=== PATIENT | female | born 1930 | race Caucasian/White ===

== ENCOUNTER → 2018-04-04 | Outpatient (CLI) | payer MEDICARE ==
--- NOTE | 2018-04-04 15:12 | RAD ---
CLINICAL INDICATION: RT BREAST MASS PRE-PROCEDURAL CONSULTATION: Details of the procedure and possible limitations and complications were discussed with the patient. Particularly the risk of implant rupture was discussed. After addressing her questions and concerns, written informed consent was obtained. A time out was then taken to verify patient's name and date of as well as site and laterality. PROCEDURE: The mass within the superior right breast was targeted under ultrasound. The skin of the right breast was cleansed and prepped in the typical sterile fashion. 7 cc of 1% lidocaine was used for local anesthesia. A small skin incision was then made to permit passage of a 16 gauge spring activated biopsy device. 3 core specimens were obtained. A S shaped clip was then deployed at the biopsy site. Hemostasis was achieved. The patient tolerated the procedure well with no immediate complications. Post-procedural digital mammographic imaging of the right breast demonstrate the S shaped clip in appropriate position. IMPRESSION: Successful ultrasound guided core needle biopsy of a superior right breast mass Pathology is pending. [facility]
--- NOTE | 2018-04-06 15:08 | PATHOLOGY ---
[facility] Accession Number: [id number] . 01 Material submitted: . RIGHT BREAST MASS BIOPSY . Clinical history: . Right breast mass . 02 Diagnosis: Breast tissue, right breast mass, needle biopsy: - INVASIVE DUCTAL CARCINOMA, HISTOLOGIC GRADE 2. SEE COMMENT. . (JPM/at/mml;04/05/2018) QTA/04/06/2018 . 02 Comment: Sections of the right breast mass needle biopsy reveal an invasive mammary carcinoma. A portion of the tumor is comprised of solid nests of tumor cells with only focal tubule formation. Another portion of the tumor is comprised of tumor cells having an organoid arrangement with peripheral nuclear palisading. The tumor shows moderate nuclear pleomorphism and mitotic activity. The invasive carcinoma measures up to 1.1 cm in greatest dimension on the glass slide. There are no tumor associated calcifications. There is no lymphovascular tumor invasion. A limited panel of immunoperoxidase stains is obtained on block A1 and reveals the following results: . Special stains performed: E-cadherin: Tumor cells positive Synaptophysin: Tumor cells negative Chromogranin: Tumor cells negative CD56: Tumor cells negative . The morphologic and immunophenotypic findings are supportive of the diagnosis of an invasive ductal carcinoma, histologic grade 2. The case is also examined by Dr. Rob Sheikh, who concurs with the diagnosis. Breast prognostic studies will be obtained, results of which will be reported separately. . (JPM/at/mml;04/05/2018) . 02 Electronically signed: . Odell Medrano MD, Pathologist NPI- [id number] . 01 Gross description: . The specimen is received in formalin, labeled "Leona Neal, right breast" and consists of 3 needle cores of pink-bates tissue measuring between 0.5 cm and 2.0 cm in length and 0.1 cm each in diameter. They are entirely submitted in A1. The cold ischemic time is 6 minutes and the total formalin fixation time is greater than 6 hours but less than 72 hours. (SDY; 04/04/2018) SYU/SYU . 02 Pathologist provided ICD-10: C50.911 . 02 CPT . 411112, D09729, W51624 Specimen Comment: A courtesy copy of this report has been sent to Specimen Comment: [phone]. Specimen Comment: Report sent to Specimen Comment: A duplicate report has been generated due to demographic updates. Performed at: 01 [facility] [address], [place] [id number] MD Sidney Langley MD Phone: [phone] Performed at: 02 [facility] [address], [place] [id number] MD Odell Medrano MD Phone: [phone]
== END | disposition home or self-care (01) ==
LOC: US 08:26
PROVIDERS: ATTEND Specialist
DX: C50.911 Malignant neoplasm of unspecified site of right female breast (principal)
CPT/HCPCS: 19083; 77065; 88305; 88341; 88342; 88361; C1713; 19081; 76942

== ENCOUNTER → 2018-04-24 | Outpatient (CLI) | payer MEDICARE ==
[~2018-04-24] MED LIST: AMLO5TAB4 PO; ASPI81TA50 PO; ATOR40TA59 PO; BIOT10004 PO; CALC500T30 PO; CHOL400C PO; CINN500C2 PO; LISI-130 PO; OMEG1CAP38 PO; RANI150T2 PO; TYLENOL PM
[2018-04-24 11:59] LABS: BASO % 1 % (0-3); EOS # 0.2 x10^3/uL (0.0-0.7); EOS % 3 % (0-3); HEMATOCRIT 45.6 % (36.0-47.0); HEMOGLOBIN 15.3 g/dL (12.0-15.5); LYMPH # 1.6 x10^3/uL (1.0-4.8); LYMPH % 21 % (24-48); MEAN CORPUSCULAR HEMOGLOBIN 32 pg (25-35); MEAN CORPUSCULAR HGB CONC 34 g/dL (31-37); MEAN CORPUSCULAR VOLUME 94 fL (79-100); MONO # 0.6 x10^3/uL (0.0-1.1); MONO % 7 % (0-9); NEUT # 5.4 x10^3uL (1.8-7.7); NEUT % 69 % (31-73); PLATELET COUNT 304 x10^3/uL (140-400); RED BLOOD COUNT 4.87 x10^6/uL (3.50-5.40); RED CELL DISTRIBUTION WIDTH 12.3 % (11.5-14.5); WHITE BLOOD COUNT 7.8 x10^3/uL (4.0-11.0)
[2018-04-24 12:10] LABS: CALCIUM 9.5 mg/dL (8.5-10.1); GFR 52.7; POTASSIUM 3.9 mmol/L (3.5-5.1)
== END | disposition home or self-care (01) ==
LOC: SURGPAT 11:20
PROVIDERS: ATTEND Surgery
DX: Z01.818 Encounter for other preprocedural examination (principal); C50.911 Malignant neoplasm of unspecified site of right female breast
CPT/HCPCS: 36415; 80048; 82040; 85025

== ENCOUNTER 2018-05-01 08:22 | Inpatient (IN) | payer MEDICARE ==
[2018-05-01] VITALS (10 sets, daily range): BP systolic 143–174; BP diastolic 64–84
[~2018-05-01] VITALS: Ht 165.1 cm; Wt 57.2 kg
[~2018-05-01 08:22] MED LIST changes: +HYDROmorphone 2 MG/ML VIAL IV PRN; +IV RINGERS,LACTATED 1000ML 1,000 ML IV SCH; +LIDOCAINE 1% PF 2 ML VIAL. ID PRN; +MORPHINE SULFATE 4 MG/ML VIAL. IV PRN; +ONDANSETRON PF 4 MG/2 ML VIAL. IV PRN; +PROCHLORPERAZINE 10 MG/2 ML VIAL. IV PRN; +fentaNYL PF VIAL 100 MCG/2 ML VIAL IV PRN
[2018-05-01] MEDS ORDERED: ONDANSETRON PF 4 MG/2 ML VIAL. ONE ×2 (08:23→10:13)
[2018-05-01] MEDS ORDERED: SEVOFLURANE 61 TO 120 MINUTES. IH ONE (08:23)
[2018-05-01] MEDS ORDERED: PROPOFOL 0 ML IV ONE (08:23)
[2018-05-01] MEDS ORDERED: LIDOCAINE 2% PF 5 ML VIAL. ONE ×2 (08:23→10:13)
[2018-05-01] MEDS ORDERED: DEXAMETHASONE SOD PHOS 20 MG/5 ML VIAL. ONE ×2 (08:23→10:13)
[2018-05-01] MEDS ORDERED: LIDOCAINE WITH 8.4% SOD BICARB 3 ML DISP.SYRIN. INJ ONE (09:00)
[2018-05-01] MEDS ORDERED: PROPOFOL 20 ML IV ONE (10:13)
[2018-05-01] MEDS ORDERED: fentaNYL PF VIAL 100 MCG/2 ML VIAL ONE (10:30)
[2018-05-01] MEDS ORDERED: MIDAZOLAM HCL/PF 2 MG/2 ML VIAL. ONE (10:30)
[2018-05-01] MEDS ORDERED: FAMOTIDINE 20 MG/2 ML VIAL ONE (10:30)
[2018-05-01] MEDS ORDERED: BUPIVAC MPF-EPI 0.5%-1:200000 30 ML VIAL. ONE (10:34)
[2018-05-01] MEDS ORDERED: ISOSULFAN BLUE 50 MG/5 ML VIAL. SQ ONE (10:35)
[2018-05-01] MEDS ORDERED: PHENYLEPHRINE in 0.9% NACL PF 1 MG/10 ML SYRINGE. IV ONE (11:21)
[2018-05-01] MEDS ORDERED: KETOROLAC 30 MG/ML INJ FOR OR. INJ ONE (12:22)
--- NOTE | 2018-05-01 12:36 | PDOC ---
BRIEF OPERATIVE NOTE Date: May 01, 2018 Pre-Op Diagnosis invasive carcinoma right breast Post-Op Diagnosis same Procedure Performed right axillary sentinel LN biopsy times two right breast lumpectomy Surgeon Layo Tapper Helper Adriana GARZA Anesthesia Type: General (LMA) Blood Loss 10cc IV Fluid 600cc Specimens Obtained right axillary sentinel nodes "hot" and blue right breast lumpectomy right axillary tissue right breast tissue medial to the lumpectomy Findings negative SLN times two Complications none SUE ALONSO MD May 01, 2018 12:36
[2018-05-01] MEDS ORDERED: POTASSIUM CL 20MEQ-0.45% NACL 1,000 ML IV SCH (13:10)
[2018-05-01] MEDS ORDERED: diphenhydrAMINE HCL 25 MG CAPSULE PO PRN (13:15)
[2018-05-01] MEDS ORDERED: 0.9 % SODIUM CHLORIDE 10 ML DISP.SYRIN. IV PRN (13:15)
[2018-05-01] MEDS ORDERED: ONDANSETRON PF 4 MG/2 ML VIAL. IV PRN (13:15)
[2018-05-01] MEDS ORDERED: HYDROcodone/APAP 5/325MG 1 TAB TABLET PO PRN ×2 (13:15)
[2018-05-01] MEDS ORDERED: MORPHINE SULFATE 4 MG/ML VIAL. IV PRN (13:15)
[2018-05-01] MEDS: LISINOPRIL 20 MG TABLET PO SCH (14:00)
--- NOTE | 2018-05-01 14:00 | NUR ---
Pt arrived to unit at 1326, by bed, from PACU. Report received from BRISEYDA Damico. Admission Dx s/p R partial lumpectomy with sentinel lymph node biopsy. Family present at bedside. Bed in low position, call light in reach, allergies verified, sign posted indicating that no BPs or needle punctures are to be done on right arm. Admission assessment in progress.
--- NOTE | 2018-05-01 14:02 | RAD ---
Mammographic tissue specimen 05/01/2018 Clinical indication: Right breast mass. Comparison: Ultrasound 04/04/2018 Findings: Single mammographic specimen placed onto a cassette was admitted for interpretation. The specimen contains a mass in the metallic biopsy marker. Impression: Mammographic specimen, as detailed.
--- NOTE | 2018-05-01 14:09 | OP ---
DATE OF SURGERY: 05/01/2018 PREOPERATIVE DIAGNOSIS: Invasive carcinoma, right breast. POSTOPERATIVE DIAGNOSIS: Invasive carcinoma, right breast. PROCEDURE: Right axillary sentinel lymph node biopsy x 2, right breast lumpectomy. SURGEON: Rodríguez Alonso MD ADJUNCT LATIN PROFESSOR: KAYLA Molina ANESTHESIA: General LMA. ESTIMATED BLOOD LOSS: 10. INTRAVENOUS FLUIDS: 600. OPERATIVE REPORT: The patient went to the nuclear medicine suite and was injected for sentinel node identification. She was then brought to the OR where the right breast, arm and chest were prepped and draped in usual sterile fashion, 2 mL of Lymphazurin was injected intradermally in the quadrant circumareolarly, associated with the palpable mass at 11-12 o'clock and the breast was gently massaged. C-Trak give us a starting point in the axilla, and the skin was infiltrated with local anesthetic, incised and dissection carried down into the axilla. Two "hot" blue stain lymph nodes were harvested and sent for frozen section. While awaiting those results, an elliptical skin incision was outlined with a marking pen over the palpable mass in the upper breast. Skin infiltrated with local anesthetic, incised and the skin underlying palpable process was carefully removed en bloc avoiding damage to the implants. Hemostasis with cautery. Specimen was sent to Radiology where a specimen radiograph confirmed the presence of the localization clip in the specimen. When a correct sponge count has been obtained, the breast incision was closed with interrupted 3-0 Vicryl in the subcutaneous tissue and a subcuticular 4-0 Monocryl with Steri-Strips for the skin. Intraoperative report of negative sentinel nodes allowed closure of the axilla with some 3-0 Vicryl in the subcutaneous tissue and a subcuticular 4-0 Monocryl with Steri-Strips for the skin. Sterile dressings applied. The patient awakened from her anesthetic and taken to the recovery room in satisfactory condition. RODRÍGUEZ ALONSO MD DR: ZULMA/shirley JOB#: [id number] / [id number]
[2018-05-01] MEDS: amLODIPine BESYLATE 5 MG TABLET PO SCH (14:37)
[2018-05-01] MEDS: CALCIUM CARBONATE 500 MG TABLET PO SCH (14:37)
[2018-05-01] MEDS: ASPIRIN ENTERIC COATED 81 MG TABLET.DR. PO SCH (14:37)
--- NOTE | 2018-05-01 15:42 | RAD ---
Nuclear medicine lymphoscintigraphy 05/01/2018 CLINICAL INDICATION: Right breast carcinoma. COMPARISON: Ultrasound 04/04/2018 TECHNIQUE: Procedure was discussed with the patient in person which included benefits and risks, which included but were not limited to bleeding, infection and damage to adjacent structures. Patient wished to proceed and gave verbal consent had previously signed written informed consent. Patient was placed supine on the imaging table. 4 separate aliquots were injected in intradermal fashion around the areola of the right breast for a total of 1.0 mCi technetium 99m sulfur colloid. Postprocedural imaging was not performed as patient went directly to the surgical suite. IMPRESSION: Technically successful technetium 99 sulfur colloid injection into the right breast. Electronically signed by: Raciel Muniz MD (05/01/2018 3:38 PM) [facility]
[2018-05-01] MEDS: FAMOTIDINE 20 MG TABLET. PO SCH (20:20)
[2018-05-01] MEDS: DOCUSATE SODIUM 100 MG CAPSULE. PO SCH (20:23)
[2018-05-01] MEDS ORDERED: ATORVASTATIN CALCIUM 40 MG TABLET. PO SCH (21:00)
[2018-05-02 03:00] VITALS: BP 148/74
[2018-05-02 07:00] VITALS: BP 157/72
[2018-05-02] MEDS ORDERED: ENOXAPARIN 40 MG/0.4 ML SYRINGE. SQ SCH (09:00)
[2018-05-02] MEDS: DOCUSATE SODIUM 100 MG CAPSULE. PO SCH (09:00)
[2018-05-02] MEDS: FAMOTIDINE 20 MG TABLET. PO SCH (09:08)
[2018-05-02] MEDS: amLODIPine BESYLATE 5 MG TABLET PO SCH (09:09)
[2018-05-02] MEDS: CALCIUM CARBONATE 500 MG TABLET PO SCH (09:09)
[2018-05-02] MEDS: LISINOPRIL 20 MG TABLET PO SCH (09:09)
[2018-05-02] MEDS: ASPIRIN ENTERIC COATED 81 MG TABLET.DR. PO SCH (09:12)
[2018-05-02 11:00] VITALS: BP 141/70
--- NOTE | 2018-05-02 13:24 | NUR ---
SW following for discharge planning. Discussed with RN, pt is from home with . RN advised no SW needs at this time and anticipates pt will discharge home today.
--- NOTE | 2018-05-02 13:38 | DISCH ---
DISCHARGE INSTRUCTIONS Condition on Discharge Condition on Discharge: Stable Activity After Discharge Activity Instructions for Disc: Resume previous activity, Activity as tolerated Lifting Instructions after Dis: No heavy lifting Driving Instructions after Dis: Do not drive (2 days) Diet after Discharge Diet after Discharge: Regular Wound Incision Care Wound/Incision Care: Ice to area for comfort Follow-Up Follow up with: Layo 05/11 SUE ALONSO MD May 02, 2018 13:38
--- NOTE | 2018-05-02 13:41 | PDOC3 ---
Discharge Summary Visit Information Date of Admission: May 01, 2018 Date of Discharge: May 02, 2018 Admitting Diagnosis Comment: invasive carcinoma, right breast Final Diagnosis same Brief Hospital Course Allergies Allergies Coded Allergies Type Severity Reaction Last Updated Verified Penicillins Allergy Intermediate 04/24/18 Yes Sulfa (Sulfonamide Antibiotics) Allergy Intermediate 04/24/18 Yes lansoprazole Allergy Intermediate Rash 04/24/18 Yes metoprolol Allergy Intermediate Unknown 04/24/18 Yes tetracycline Allergy Intermediate 04/24/18 Yes clonidine Adverse Reaction Intermediate 04/24/18 Yes metformin Adverse Reaction Intermediate Unknown 04/24/18 Yes Uncoded Allergies Type Severity Reaction Last Updated Verified TIAZINE Allergy Intermediate Nausea and Vomiting 04/24/18 Vital Signs Vital Signs Date Time Temp Pulse Resp B/P (MAP) Pulse Ox O2 Delivery O2 Flow Rate FiO2 05/02/18 11:00 98.0 77 18 141/70 (93) 97 Room Air 98.0 05/01/18 12:46 6 Lab Results Laboratory Tests Test 05/01/18 12:36 Glucose (Fingerstick) 105 mg/dL (70-99) Brief Hospital Course Ms. Neal is a 87 old [sex] who presented with [ ] Discharge Information Condition at Discharge: Stable Follow Up: As Needed Disposition/Orders: D/C to Home Scheduled Amlodipine Besylate (Norvasc) 5 Mg Tablet, 1 TAB PO DAILY for HTN, #30 Ref 5 ( Reported) Entered as Reported by: GRACE CHOU on 04/24/18 114 Last Taken: Unknown Dose on 05/01/18 0630 Last Action: Continued on 1316 by SUE ALONSO Aspirin (Aspir-Low) 81 Mg Tablet.dr, 1 TAB PO DAILY for HEART PROTECTION, #30 Ref 3 (Reported) Entered as Reported by: GRACE CHOU on 04/24/18 114 Last Taken: Unknown Dose on 04/24/18 Last Action: Continued on 05/01/18 1316 by SUE ALONSO Atorvastatin Calcium (Atorvastatin Calcium) 40 Mg Tablet, 1 TAB PO DAILY for HIGH CHOLESTEROL, #30 Ref 5 (Reported) Entered as Reported by: GRACE CHOU on 04/24/18 114 Last Taken: Unknown Dose on 04/30/18 Last Action: Continued on 05/01/18 1316 by SUE ALONSO Biotin (Biotin) 1,000 Mcg Tab.chew, 1,000 MCG PO DAILY for SUPPLEMENT, (Reported ) Entered as Reported by: GRACE CHOU on 04/24/181148 Last Taken: Unknown Dose on 04/24/18 Last Action: HELD on 05/01/18 1316 by USE ALONSO Calcium Carbonate (Calcium) 500 Mg Tablet, 500 MG PO DAILY for SUPPLEMENT, ( Reported) Entered as Reported by: GRACE CHOU on 04/24/181148 Last Taken: Unknown Dose on 04/24/18 Last Action: Continued on 05/01/18 1316 by SUE ALONSO Cholecalciferol (Vitamin D3) (Vitamin D3) 400 Unit Capsule, 400 UNIT PO DAILY for SUPPLEMENT, (Reported) Entered as Reported by: GRACE CHOU on 04/24/181148 Last Taken: Unknown Dose on 04/24/18 Last Action: HELD on 05/01/18 1316 by SUE ALONSO Cinnamon Bark (Cinnamon) 500 Mg Capsule, 500 MG PO DAILY for SUPPLEMENT, ( Reported) Entered as Reported by: GRACE CHOU on 04/24/18 114 Last Taken: Unknown Dose on 04/24/18 Last Action: HELD on 05/01/18 1316 by SUE ALONSO Lisinopril (Lisinopril) 40 Mg Tablet, 1 TAB PO DAILY for HTN, #30 Ref 5 ( Reported) Entered as Reported by: GRACE CHOU on 04/24/181148 Last Taken: Unknown Dose on 04/30/18 Last Action: Continued on 05/01/18 1316 by SUE ALONSO Kiel-3 Fatty Acids/Fish Oil (Kiel 3 Fish Oil Softgel) 1 Each Capsule.dr, 1 EACH PO DAILY for CHOLESTEROL, (Reported) Entered as Reported by: GRACE CHOU on 04/24/18 114 Last Taken: Unknown Dose on 04/24/18 Last Action: HELD on 05/01/18 1316 by SUE ALONSO Ranitidine Hcl (Ranitidine Hcl) 150 Mg Tablet, 1 TAB PO BID for REFLUX, #180 Ref 3 (Reported) Entered as Reported by: GRACE CHOU on 04/24/181148 Last Taken: Unknown Dose on 05/01/18 0630 Last Action: Converted on 1316 by SUE ALONSO Miscellaneous Medications [Tylenol Pm] , (Reported) Entered as Reported by: GRACE CHOU on 04/24/18 1149 Last Taken: Unknown Dose on 04/30/18 Last Action: HELD on 05/01/18 1316 by SUE YA MD May 02, 2018 13:41
--- NOTE | 2018-05-02 15:12 | NUR ---
Discharge Note: SUELLEN DAVEY [address] [place] [address] Discharge instructions and discharge home medications reviewed with Patient and a copy given. All questions have been answered and understanding verbalized. The following instructions and handouts were given: Post op care Discontinued lines and drains: Peripheral IV. Patient discharged to Home or Self Care with Spouse via Ambulated Addendum: 05/02/18 at 1715 by NANY TODD RN RN Pt states she has stool softners at home, has no pain. Left scripts at the hospital. States she does not need them.
--- NOTE | 2018-05-04 15:09 | PATHOLOGY ---
[facility] Accession Number: [id number] . 01 Material submitted: . PART A: RIGHT AXILLARY SENTINEL NODE - FS PART B: RIGHT AXILLARY SENTINEL NODE - FS PART C: MASS RIGHT BREAST 11:00 PART D: RIGHT BREAST TISSUE MEDIAL #1 SPECIMEN . 01 Clinical history: . Breast cancer . 02 Diagnosis: A. Lymph nodes and fibroadipose tissue, right axillary sentinel lymph node #1 hot/blue: - Two lymph nodes negative for tumor (0/2). . B. Lymph node and fibroadipose tissue, right axillary sentinel lymph node #2 hot/blue: - Negative for tumor (0/1). . C. Skin and breast tissue, right breast lumpectomy 11:00: - INVASIVE DUCTAL CARCINOMA, HISTOLOGIC GRADE II, FORMING A MASS MEASURING 2.5 CM IN GREATEST DIMENSION. 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 - INVASIVE CARCINOMA IS FOCALLY PRESENT AT THE INKED MARGIN OF THE LUMPECTOMY. - No lymphovascular tumor invasion identified. - Previous biopsy site changes. . D. Breast tissue, right breast tissue medial to specimen #1: - Negative for tumor. - Focal fat necrosis and chronic inflammation. - Medial arterial calcification, focal. . (JPM:[place]ah; 05/03/2018) MBR/05/03/2018 . 02 Comment: The sentinel lymph nodes are examined at multiple levels. In addition, immunoperoxidase stains for AE1/AE3 are obtained on the sentinel lymph nodes and yield the following results: . AE1/AE3 (A1): Two lymph nodes negative for tumor. AE1/AE3 (B1): Single lymph node negative for tumor. . Sections of the right breast lumpectomy reveal an invasive ductal carcinoma, histologic grade II. 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 Invasive carcinoma is focally present at an inked margin of the lumpectomy. Invasive carcinoma is less than 1 mm from the opposite side margin of resection over a broad area. . Special stains performed: Immunoperoxidase stains for AE1/AE3 on A1 and B1. . (JPM:keturah; 05/03/2018) . . INVASIVE CARCINOMA OF THE BREAST: Procedure ___ Other (specify): Lumpectomy. . Specimen Laterality ___ Right . + Tumor Site: Invasive Carcinoma + ___ Position (specify): 11 o'clock . Tumor Size ___ Greatest dimension of largest invasive focus >1 mm (millimeters): 25 mm . Histologic Type ___ Invasive carcinoma of no special type (ductal, not otherwise specified) . Histologic Grade ([place] Histologic Score) Glandular (Acinar)/Tubular Differentiation ___ Score 2 (10% to 75% of tumor area forming glandular/tubular structures) . Nuclear Pleomorphism ___ Score 2 (cells larger than normal with open vesicular nuclei, visible nucleoli, and moderate variability in both size and shape) . Mitotic Rate ___ Score 2 (4-7 mitoses per mm2) (see Table 1) . Overall Grade ___ Grade 2 (scores of 6 or 7) . + Tumor Focality + ___ Single focus of invasive carcinoma . Ductal Carcinoma In Situ (DCIS) ___ Present + ___ Negative for extensive intraductal component (EIC) . + Architectural Patterns + ___ Cribriform . + Nuclear Grade (see Table 2) + ___ Grade II (intermediate) . + Necrosis + ___ Present, focal (small foci or single cell necrosis) . + Lobular Carcinoma In Situ (LCIS) + ___ No LCIS in specimen . Margins Invasive Carcinoma Margins ___ Positive for invasive carcinoma Specify margin(s): Specimen not oriented . DCIS Margins ___ Uninvolved by DCIS . Regional Lymph Nodes ___ Uninvolved by tumor cells Number of [place] Nodes Examined: 3 . Treatment Effect ___ No known presurgical therapy . + Lymphovascular Invasion + ___ Not identified . + Dermal Lymphovascular Invasion + ___ Not identified . Pathologic Stage Classification (pTNM, AJCC 8th Edition) Primary Tumor (Invasive Carcinoma) (pT) ___ pT2:Tumor >20 mm but <or= 50 mm in greatest dimension . Regional Lymph Nodes (pN) ___ pN0:No regional lymph node metastasis identified or ITCs only . + Microcalcifications (select all that apply) + ___ Not identified . + Clinical History (select all that apply) + ___ Radiologic finding + ___ Mass or architectural distortion . (JPM:bariatric coordinator; 05/04/2018) . 02 Electronically signed: . Odell Medrano MD, Pathologist NPI- [id number] . 01 Gross description: . A. The specimen is received fresh for intraoperative consultation and is designated "right axillary sentinel node #1 hot/blue". This consists of a segment of yellow fatty tissue measuring up to 3.0 cm in length and 1.1 cm in width. This contains a small eccentrically located bates-brown lymph node measuring up to 0.7 cm in greatest dimension. This is submitted for frozen section as FSA1. The tissue remaining from frozen section is submitted as A1. . B. The specimen is received fresh for intraoperative consultation and is designated "right axillary sentinel node #2 hot/blue". This consists of a small segment of yellow fatty tissue measuring up to 1.1 cm in greatest dimension. Sectioning reveals a small bates-brown lymph node measuring up to 0.4 cm in greatest dimension. This is submitted for frozen section as FSB1. The tissue remaining from frozen section is submitted for permanent sections as B1. (JPM:bariatric coordinator; 05/01/2018) . C. The specimen is received in formalin, labeled "Leona Neal, mass right breast, 11:00", is a fibroadipose tissue with overlying skin weighing 8 g and measuring 4.5 x 3.0 x 0.5 cm and skin 3.5 x 0.5 cm. A suture is present on the skin, this is inked blue and the remaining margin inked black. The specimen is serially sectioned perpendicular to the skin to reveal a bates-pink, firm mass measuring 2.5 x 2.0 x 0.9 cm (corresponding to black suture). The mass abuts the black inked margin. The remaining parenchyma is glistening, yellow lobulated. The specimen is entirely submitted (contiguous section) in the C1-C9. (Mass = C2-C7 and skin = C4-C8) Specimen excised at: 1204, on 05/01/18, placed in formalin at: 1250 on 05/01/18, formalin exposure: Approximately 11 hours and 50 minutes. . D. The specimen is received in formalin, labeled "Leona Neal, right breast tissue medial to #1 specimen", is an unoriented fibroadipose tissue measuring 1.5 x 1.2 x 1.0 cm. The specimen is inked black, serially sectioned and entirely submitted in D1. Specimen excised at: 1208 on 05/01/18, placed in formalin: Not provided, formalin exposure: Cannot be determined ([facility]; 05/01/2018) . (Odell Medrano MD) . FSA1. Right axillary sentinel lymph node #1 hot/blue: - Negative for tumor. . The results are reported to Dr. Vasques in the operating room. . FSB1. Right axillary sentinel lymph node #2 hot/blue: - Negative for tumor. . The results are reported to Dr. Vasques in the operating room. . ([facility]:bariatric coordinator; 05/01/2018) . Frozen section performed at [facility], [address] [place] [id number]. [facility] . 02 Pathologist provided ICD-10: C50.911, D05.11 . 02 CPT . 738503, 992358, 060239, 448345, 810046, 287166, [id number] Specimen Comment: A courtesy copy of this report has been sent to Specimen Comment: [phone], . Specimen Comment: Report sent to / DR ALVARADO Specimen Comment: A duplicate report has been generated due to demographic updates. Performed at: 01 [facility] [address], [place], [place] [id number] MD Sidney Langley MD Phone: [phone] Performed at: [address] [id number] MD Odell Medrano MD Phone: [phone]
== END 2018-05-02 12:00 | disposition home or self-care (01) | DRG 581 ==
LOC: SURG 08:22 → 4 NORTH 13:10
PROVIDERS: ADMIT Surgery; ATTEND Surgery
PROC: 07B50ZX Excision of Right Axillary Lymphatic, Open Approach, Diagnostic (ICD-10-PCS; principal; 2018-05-01 10:30)
PROC: 0HBT0ZZ Excision of Right Breast, Open Approach (ICD-10-PCS; 2018-05-01 10:30)
DX: C50.911 Malignant neoplasm of unspecified site of right female breast (principal); I10 Essential (primary) hypertension; E78.00 Pure hypercholesterolemia, unspecified; E11.9 Type 2 diabetes mellitus without complications; K21.9 Gastro-esophageal reflux disease without esophagitis; M81.0 Age-related osteoporosis without current pathological fracture; Z96.1 Presence of intraocular lens; Z88.0 Allergy status to penicillin; Z88.2 Allergy status to sulfonamides; Z88.8 Allergy status to other drugs, medicaments and biological substances; Z98.49 Cataract extraction status, unspecified eye; Z90.710 Acquired absence of both cervix and uterus; Z83.3 Family history of diabetes mellitus; Z80.49 Family history of malignant neoplasm of other genital organs; Z79.899 Other long term (current) drug therapy
CPT/HCPCS: 38792; 76098; 82962; 88305; 88307; 88331; 88342; 96374; A9541; J1100; J1885; J1956; J2001; J2250; J2370; J2405; J2704; J3010; J3490; Q9968; G0378

== ENCOUNTER → 2018-07-05 | Outpatient (CLI) | payer MEDICARE ==
[~2018-07-05] MED LIST changes: -HYDROmorphone 2 MG/ML VIAL IV PRN; -IV RINGERS,LACTATED 1000ML 1,000 ML IV SCH; -LIDOCAINE 1% PF 2 ML VIAL. ID PRN; -MORPHINE SULFATE 4 MG/ML VIAL. IV PRN; -ONDANSETRON PF 4 MG/2 ML VIAL. IV PRN; -PROCHLORPERAZINE 10 MG/2 ML VIAL. IV PRN; -fentaNYL PF VIAL 100 MCG/2 ML VIAL IV PRN
--- NOTE | 2018-07-05 13:27 | KCIC ---
EXAM: Dual energy x-ray absorptiometry (DEXA). HISTORY: Postmenopausal female presents for osteoporosis screening. COMPARISON: None. TECHNIQUE: Dual energy x-ray absorptiometry of the lumbar spine and left hip was performed. Calculation of bone mineral density based on standard deviations above or below the expected young adult normal value (T-score) was completed. FINDINGS: The average bone mineral density in the 1st through 4th lumbar vertebrae is 0.880 g/cmxcm, corresponding with a T-score of -1.5. The average total bone mineral density in the left hip is 0.695 g/cmxcm, corresponding with a T-score of -2.0. IMPRESSION: Osteopenia measured at the lumbar spine and left hip. Note: Definitions established by the World Health Organization: 1. Normal: T-score is -1.0 or above. 2. Osteopenia: T-score is between -1.0 and -2.5 . 3. Osteoporosis: T-score is -2.5 or below. Electronically signed by: Jayne Ngo MD (07/05/2018 1:25 PM) [place] [id number]
== END | disposition home or self-care (01) ==
LOC: KCIC DEXA 11:03
PROVIDERS: ATTEND Internal Medicine Hematology & Oncology
DX: M85.88 Other specified disorders of bone density and structure, other site (principal); C50.911 Malignant neoplasm of unspecified site of right female breast; Z79.811 Long term (current) use of aromatase inhibitors
CPT/HCPCS: 77080

== ENCOUNTER 2019-04-20 11:55 | Emergency (ER) | payer MEDICARE ==
[2019-04-20 12:17] VITALS: BP 183/87
--- NOTE | 2019-04-20 12:40 | PHYS DOC ---
Past Medical History Past Medical History: High Cholesterol, Hypertension Past Surgical History: No Surgical History Alcohol Use: None Adult General Chief Complaint Chief Complaint: MECHANICAL FALL HPI HPI Patient is an 88-year-old female who presents with complaint of right knee pain and injury after tripping over a concrete barrier and landing on her right knee. Patient states that she has not been able to bear any weight on that knee since injury which was about 30 minutes ago. Patient rates her pain at a 5 out of 10 as long as she is lying still but states that if she tries to move her knee, becomes a 10 out of 10. She denies any other injuries. She denies any head injury or loss of consciousness.[] Review of Systems Review of Systems Constitutional: Denies fever or chills [] Respiratory: Denies cough or shortness of breath [] Cardiovascular: No additional information not addressed in HPI [] Musculoskeletal: Complains of right knee pain [] Integument: Denies rash or skin lesions [] Neurologic: Denies headache, focal weakness or sensory changes [] All other systems were reviewed and found to be within normal limits, except as documented in this note. Allergies Allergies Allergies Coded Allergies Type Severity Reaction Last Updated Verified Penicillins Allergy Intermediate 04/24/18 Yes Sulfa (Sulfonamide Antibiotics) Allergy Intermediate 04/24/18 Yes lansoprazole Allergy Intermediate Rash 04/24/18 Yes metoprolol Allergy Intermediate Unknown 04/24/18 Yes tetracycline Allergy Intermediate 04/24/18 Yes clonidine Adverse Reaction Intermediate 04/24/18 Yes metformin Adverse Reaction Intermediate Unknown 04/24/18 Yes Uncoded Allergies Type Severity Reaction Last Updated Verified TIAZINE Allergy Intermediate Nausea and Vomiting 04/24/18 Physical Exam Physical Exam Constitutional: Well developed, well nourished, no acute distress, non-toxic appearance. [] HENT: Normocephalic, atraumatic, bilateral external ears normal, oropharynx moist, no oral exudates, nose normal. [] Eyes: PERRLA, EOMI, conjunctiva normal, no discharge. [] Neck: Normal range of motion, no tenderness, supple, no stridor. [] Cardiovascular: Regular rate and rhythm[] Lungs & Thorax: Bilateral breath sounds clear to auscultation [] Abdomen: Bowel sounds normal, soft, no tenderness. [] Skin: Warm, dry, no erythema, no rash. [] Extremities: Right knee demonstrates soft tissue swelling with apparent effusion and tenderness to palpation overlying the patella and overlying abrasion. Unable to assess ligamentous status due to pain. [] Neurologic: Alert and oriented X 3, normal motor function, normal sensory function, no focal deficits noted. [] Psychologic: Affect normal, judgement normal, mood normal. [] Current Patient Data Vital Signs Vital Signs Date Time Temp Pulse Resp B/P (MAP) Pulse Ox O2 Delivery O2 Flow Rate FiO2 04/20/19 12:17 98.3 72 16 183/87 (119) 95 Room Air 98.3 EKG EKG [] Radiology/Procedures Radiology/Procedures [] Impressions: ROCEDURE: KNEE RIGHT 3V Three-view right knee dated 04/20/2019. No comparison available. CLINICAL INDICATION: Pain after injury. FINDINGS: 3 views of the right knee show a transverse fracture through the lower pole of the patella, mildly displaced. There is overlying soft tissue swelling. Small joint effusion with fat/fluid level. Distal femur and proximal tibia are intact. IMPRESSION: 1. Mildly displaced transverse fracture through the lower pole of the patella. 2. Small lipohemarthrosis. Electronically signed by: Jhony Benz MD (04/20/2019 12:41 PM) [facility] DICTATED and SIGNED BY: JHONY BENZ MD DATE: 04/20/19 1241 Course & Med Decision Making Course & Med Decision Making Pertinent Labs and Imaging studies reviewed. (See chart for details) [] Dragon Disclaimer Dragon Disclaimer This electronic medical record was generated, in whole or in part, using a voice recognition dictation system. Departure Departure Impression: Primary Impression: Patella fracture Disposition: 01 HOME, SELF-CARE Condition: STABLE Referrals: NICOLASA ALVARADO MD (PCP) VASU INMAN II, MD Patient Instructions: Patellar Fracture, Adult Additional Instructions: Call to schedule follow-up appointment with Dr. Inman with orthopedics in the next week. Scripts Hydrocodone/Apap 5-325 (NORCO 5-325 TABLET) 1 Each Tablet 1-2 EACH PO PRN Q6HRS PRN for PAIN, #15 as needed for pain Prov: RAHUL LLOYD Jr. DO 04/20/19 Problem Qualifiers Primary Impression: Patella fracture Encounter type: initial encounter Fracture type: closed Fracture morphology: unspecified fracture morphology Fracture alignment: nondispla amy Laterality: right Qualified Codes: S82.001A - Unspecified fracture of right patella, initial encounter for closed fracture RAHUL LLOYD Jr. DO Apr 20, 2019 12:40
--- NOTE | 2019-04-20 12:44 | RAD ---
Three-view right knee dated 04/20/2019. No comparison available. CLINICAL INDICATION: Pain after injury. FINDINGS: 3 views of the right knee show a transverse fracture through the lower pole of the patella, mildly displaced. There is overlying soft tissue swelling. Small joint effusion with fat/fluid level. Distal femur and proximal tibia are intact. IMPRESSION: 1. Mildly displaced transverse fracture through the lower pole of the patella. 2. Small lipohemarthrosis. Electronically signed by: Jhony Benz MD (04/20/2019 12:41 PM) [facility]
[2019-04-20] MEDS ORDERED: HYDR-3164 PO (14:04)
== END 2019-04-20 15:45 | disposition home or self-care (01) ==
LOC: ER 11:55
DX: S82.001A Unspecified fracture of right patella, initial encounter for closed fracture (principal); I10 Essential (primary) hypertension; E78.00 Pure hypercholesterolemia, unspecified; Z88.0 Allergy status to penicillin; Z88.2 Allergy status to sulfonamides; Z88.1 Allergy status to other antibiotic agents; Z88.5 Allergy status to narcotic agent; Z88.8 Allergy status to other drugs, medicaments and biological substances; W22.8XXA Striking against or struck by other objects, initial encounter; Y93.89 Activity, other specified; Y92.89 Other specified places as the place of occurrence of the external cause; Y99.8 Other external cause status
CPT/HCPCS: 29505; 73562; 99284-25